=== PATIENT | female | born 1980 | race American Indian/Alaskan Native ===

== ENCOUNTER 2019-11-26 13:06 | Emergency (ER) | payer SELFPAY ==
--- NOTE | 2019-11-26 14:12 | Event Note ---
ED Screening Note Date of service: 11/26/19 Time: 14:11 ED Screening Note: 39 y/o female comes in for 3 day history of abdominal pain that is perimbilus. Worst with lifting heavy objects. This initial assessment/diagnostic orders/clinical plan/treatment(s) is/are subject to change based on patients health status, clinical progression and re- assessment by fellow clinical providers in the ED. Further treatment and workup at subsequent clinical providers discretion. Patient/guardian urged not to elope from the ED as their condition may be serious if not clinically assessed and managed. Initial orders include:
[2019-11-26 14:45] LABS: Bilirubin,Urine NEG (Negative); Blood,Urine SM (Negative); Color,Urine Yellow (Yellow); Mucus,Urine FEW /HPF; Protein,Urine <15 mg/dL mg/dL (Negative); Urobilinogen,Urine < 2.0 mg/dL (<2.0)
[2019-11-26 15:26] LABS: Basophils # (Auto) 0.1 K/mm3 (0.0-0.1); Basophils % (Auto) 0.9 % (0.0-1.8); Eosinophils # (Auto) 0.1 K/mm3 (0.0-0.4); Hematocrit 37.7 % (30.3-42.9); Hemoglobin 12.1 gm/dl (10.1-14.3); Lymphocytes # (Auto) 2.3 K/mm3 (1.2-5.4); Lymphocytes % (Auto) 37.9 % (13.4-35.0); Mean Corpuscular HGB Conc 32 % (30-34); Mean Corpuscular Volume 91 fl (79-97); Monocytes # (Auto) 0.7 K/mm3 (0.0-0.8); Platelet Count 170 K/mm3 (140-440); Red Blood Count 4.13 M/mm3 (3.65-5.03); Red Cell Distribution Width 14.2 % (13.2-15.2)
[2019-11-26 15:47] LABS: Alanine Aminotransferase 7 units/L (7-56); Albumin 3.8 g/dL (3.9-5); BUN/Creatinine Ratio 10; Blood Urea Nitrogen 7 mg/dL (7-17); Calcium 8.9 mg/dL (8.4-10.2); Hemolysis Index 22
--- NOTE | 2019-11-26 18:56 | Emergency Department Report ---
HPI - General Chief Complaint: Abdominal Pain Time Seen by Provider: 11/26/19 14:11 - HPI HPI: Room 34 The patient is 31-year-old female presenting with a chief complaint of periumbilical abdominal pain. Patient states 2 weeks ago she noticed a "knot" at her belly button intermittently. Patient states she has pain with when she stands up. Swelling has been intermittent. Patient denies nausea vomiting or constipation. Patient states her pain is increased when picking up large objects Location: [See above] Duration: [See above] Quality: [See above] Severity: [See above] Timing: [See above] Context: [See above] Modifying factors: [See above] Associated signs and symptoms: [see above] ED Past Medical Hx - Past Medical History Previous Medical History?: No - Surgical History Past Surgical History?: No - Family History Family history: no significant - Social History Smoking Status: Former Smoker (none 2-3 weeks) Substance Use Type: None (denies illicit drug use) - Medications Home Medications: Home Medications Medication Instructions Recorded Confirmed Last Taken Type traMADoL [Ultram] 50 mg PO Q6HR PRN #14 tablet 11/26/19 Unknown Rx ED Review of Systems ROS: Stated complaint: STOMACH PAIN Other details as noted in HPI Constitutional: no symptoms reported Eyes: denies: eye pain ENT: denies: throat pain Respiratory: no symptoms reported Cardiovascular: denies: chest pain Endocrine: no symptoms reported Gastrointestinal: abdominal pain. denies: nausea, vomiting, constipation Genitourinary: denies: dysuria Musculoskeletal: denies: back pain Physical Exam - Physical Exam Vital Signs: Vital Signs 11/26/19 14:07 Temperature 98 F Pulse Rate 86 Respiratory 18 Rate Blood Pressure 143/84 O2 Sat by Pulse 99 Oximetry Physical Exam: GENERAL: The patient is well-developed well-nourished female sitting on stretcher not appearing to be in acute distress. [] HEENT: Normocephalic. Atraumatic. Extraocular motions are intact. Patient has moist mucous membranes. NECK: Supple. Trachea midline CHEST/LUNGS: There is no respiratory distress noted. HEART/CARDIOVASCULAR: Regular. There is no tachycardia. There is no gallop rub or murmur. ABDOMEN: Abdomen is soft, with tenderness to palpation at the umbilicus. There is a subcutaneous nodule palpated in the umbilicus is very tender to palpation. There are no overlying skin changes. Patient has normal bowel sounds. There is no abdominal distention. SKIN: There is no rash. There is no edema. There is no diaphoresis. NEURO: The patient is awake, alert, and oriented. The patient is cooperative. The patient has normal speech MUSCULOSKELETAL: There is no evidence of acute injury. ED Course Vital Signs 11/26/19 14:07 Temperature 98 F Pulse Rate 86 Respiratory 18 Rate Blood Pressure 143/84 O2 Sat by Pulse 99 Oximetry ED Medical Decision Making - Lab Data Result diagrams: 11/26/19 14:57 11/26/19 14:57 Laboratory Tests 11/26/19 11/26/19 11/26/19 14:00 14:00 14:57 WBC 6.0 RBC 4.13 Hgb 12.1 Hct 37.7 MCV 91 MCH 29 MCHC 32 RDW 14.2 Plt Count 170 Lymph % (Auto) 37.9 H [place] % (Auto) 12.0 H Eos % (Auto) 2.0 Baso % (Auto) 0.9 Lymph # 2.3 [place] # 0.7 Eos # 0.1 Baso # 0.1 Seg Neutrophils % 47.2 Seg Neutrophils # 2.8 Sodium Potassium Chloride Carbon Dioxide Anion Gap BUN Creatinine Estimated GFR BUN/Creatinine Ratio Glucose Calcium Total Bilirubin AST ALT Alkaline Phosphatase Total Protein Albumin Albumin/Globulin Ratio Urine Color Yellow Urine Turbidity Clear Urine pH 6.0 Ur Specific [place] 1.017 Urine Protein <15 mg/dl Urine Glucose (UA) Neg Urine Ketones Neg Urine Blood Sm Urine Nitrite Neg Urine Bilirubin Neg Urine Urobilinogen < 2.0 Ur Leukocyte Esterase Lg Urine WBC (Auto) 3.0 Urine RBC (Auto) 7.0 U Epithel Cells (Auto) 2.0 Urine Mucus Few Urine HCG, Qual Negative 11/26/19 14:57 WBC RBC Hgb Hct MCV MCH MCHC RDW Plt Count Lymph % (Auto) [place] % (Auto) Eos % (Auto) Baso % (Auto) Lymph # [place] # Eos # Baso # Seg Neutrophils % Seg Neutrophils # Sodium 136 L Potassium 3.9 Chloride 105.2 Carbon Dioxide 18 L Anion Gap 17 BUN 7 Creatinine 0.7 Estimated GFR > 60 BUN/Creatinine Ratio 10 Glucose 80 Calcium 8.9 Total Bilirubin 0.40 AST 14 ALT 7 Alkaline Phosphatase 39 Total Protein 6.7 Albumin 3.8 L Albumin/Globulin Ratio 1.3 Urine Color Urine Turbidity Urine pH Ur Specific [place] Urine Protein Urine Glucose (UA) Urine Ketones Urine Blood Urine Nitrite Urine Bilirubin Urine Urobilinogen Ur Leukocyte Esterase Urine WBC (Auto) Urine RBC (Auto) U Epithel Cells (Auto) Urine Mucus Urine HCG, Qual - Radiology Data Radiology results: report reviewed (CT abdomen and pelvis), image reviewed (CT abdomen and pelvis) [facility] [address] [place] [address] Cat Scan Report Signed Patient: DONNA LINARES MR#: [id number] 25 : 1980 Acct:[id number] Age/Sex: 39 / F ADM Date: 11/26/19 Loc: ED Attending Dr: Ordering Physician: CASH LANTIGUA MD Date of Service: 11/26/19 Procedure(s): CT abdomen pelvis wo con Accession Number(s): [id number] cc: CASH LANTIGUA MD CT abdomen pelvis wo con INDICATION / CLINICAL INFORMATION: periumbilical pain and swelling. TECHNIQUE: Axial CT imaging of abdomen and pelvis was obtained without contrast. Coronal and sagittal reformatted imaging obtained and reviewed. All C T scans at this location are performed using CT dose reduction for ALARA by means of automated exposure control. COMPARISON: None available. FINDINGS: Please note interpretation of CT scan is somewhat limited by the lack of body fat as well as the lack of IV and/or oral contrast. CT abdomen without contrast demonstrates grossly normal appearance of the liver, spleen, pancreas, right kidney, and adrenal glands. Gallbladder is unremarkable. There is a large calculus in the mid to upper pole of the left kidney measuring 1.8 cm. This is not causing any obstruction. CT pelvis without contrast demonstrates normal appearance of the appendix. There is left adnexal cystic mass, measuring approximately 2.9 cm possibly representing ovarian cyst. There is free fluid in the posterior left pelvis, extending into the ischiorectal fossa. GI tract is grossly unremarkable. Visualized lung bases are clear. No significant osseous abnormality. IMPRESSION: 1. Left adnexal cystic mass probably representing o varian cyst. There is small amount of free fluid extending from the cystic mass posteriorly. This could be confirmed with pelvic ultrasound, if clinically warranted. 2. Nonobstructing large left intrarenal calculus. 3. No other significant finding. Signer Name: Chrissy Liu MD Signed: 11/26/2019 9:03 PM Workstation Name: [id number] Transcribed By: JR Dictated By: Chrissy Liu MD Electronically Authenticated By: Chrissy Liu MD Signed Date/Time: 11/26/192102 DD/ 56 TD/TT: - Differential Diagnosis umbilical hernia, subcutaneous nodule Critical care attestation.: If time is entered above; I have spent that time in minutes in the direct care of this critically ill patient, excluding procedure time. ED Disposition Clinical Impression: Subcutaneous nodule of abdominal wall, Abdominal pain, Ovarian cyst, Calculus of left kidney Disposition: - TO HOME OR SELFCARE Is pt being admited?: No Does the pt Need Aspirin: No Condition: Stable Instructions: Abdominal Pain (ED) Additional Instructions: Return to the emergency department should you develop worsening symptoms, inability to tolerate food or liquids, high fever or any other concerns Prescriptions: traMADoL [Ultram] 50 mg PO Q6HR PRN #14 tablet PRN Reason: Pain Referrals: MILENA BOGGS MD [Staff Physician] - 3-5 Days (Dr Boggs is a tool design drafter. Please follow up with him for further evaluation) HEBERT HAGEN MD [Staff Physician] - 3-5 Days (Dr Hagen is a primary physician. Please follow up with him for further evaluation) Time of Disposition: 21:14
[2019-11-26 19:11] LABS: HCG Qualitative,Urine Negative (Negative)
--- NOTE | 2019-11-26 21:07 | Cat Scan Report ---
CT abdomen pelvis wo con INDICATION / CLINICAL INFORMATION: periumbilical pain and swelling. TECHNIQUE: Axial CT imaging of abdomen and pelvis was obtained without contrast. Coronal and sagittal reformatte d imaging obtained and reviewed. All CT scans at this location are performed using CT dose reduction for ALARA by means of automated exposure control. COMPARISON: None available. FINDINGS: Please note interpretation of CT scan is somewhat limited by the lack of body fat as well as the lack of IV and/or oral contrast. CT abdomen without contrast demonstrates grossly normal appearance of the liver, spleen, pancreas, ri ght kidney, and adrenal glands. Gallbladder is unremarkable. There is a large calculus in the mid to upper pole of the left kidney measuring 1.8 cm. This is not causing any obstruction. CT pelvis without contrast demonstrates normal appearance of the appendix. There is left adnexal cyst ic mass, measuring approximately 2.9 cm possibly representing ovarian cyst. There is free fluid in th e posterior left pelvis, extending into the ischiorectal fossa. GI tract is grossly unremarkable. Visualized lung bases are clear. No significant osseous abnormality. IMPRESSION: 1. Left adnexal cystic mass probably representing ovarian cyst. There is small amount of free fluid e xtending from the cystic mass posteriorly. This could be confirmed with pelvic ultrasound, if clinica lly warranted. 2. Nonobstructing large left intrarenal calculus. 3. No other significant finding. Signer Name: Chrissy Liu MD Signed: 11/26/2019 9:03 PM Workstation Name: [id number]
[2019-11-26 21:25] VITALS: BP 145/78
== END 2019-11-26 21:40 | disposition home or self-care (01) ==
LOC: ED 13:06
DX: N83.202 Unspecified ovarian cyst, left side (principal); N20.0 Calculus of kidney; Z87.891 Personal history of nicotine dependence; Z91.040 Latex allergy status; Z88.6 Allergy status to analgesic agent
CPT/HCPCS: 36415; 74176; 80053; 81001; 81025; 85025